=== PATIENT | female | born 1975 | race Caucasian/White ===

== ENCOUNTER 2024-01-25 10:59 | Day surgery (SDC) | payer OTHER ==
[~2024-01-25] VITALS: Ht 162.6 cm; Wt 99.8 kg
[2024-01-25] MEDS ORDERED: fentaNYL citrate 0.05 MG/ML VIAL ONE (13:05)
[2024-01-25] MEDS: fentaNYL citrate 0.05 MG/ML VIAL IVP ONE (13:14)
[2024-01-25] MEDS: LIDOCAINE 2% 100 MG/5 ML UJET TP ONE (14:36)
== END 2024-01-25 14:19 | disposition home or self-care (01) ==
LOC: MDS 10:59 → MMU 11:00 → MDS 14:19
PROVIDERS: ATTEND Internal Medicine Gastroenterology
DX: Z12.11 Encounter for screening for malignant neoplasm of colon (principal); Z80.0 Family history of malignant neoplasm of digestive organs; Z98.891 History of uterine scar from previous surgery
CPT/HCPCS: 45378; J3010